=== PATIENT | male | born 1970 | race Caucasian/White ===

== ENCOUNTER 2017-08-12 00:32 | Emergency (ER) | payer MEDICAID ==
[2017-08-12 00:42] VITALS: BP 161/76
[2017-08-12] MEDS ORDERED: Ondansetron 4 MG/2 ML SDV IVPUSH ONE ×2 (01:02→02:37)
--- NOTE | 2017-08-12 01:08 | EDM.PDOC ---
ED HPI GENERAL MEDICAL PROBLEM - General Chief Complaint: Gastrointestinal Problem Stated Complaint: VOMITING/DIARRHEA Time Seen by Provider: 08/12/17 00:39 Source of Information: Reports: Patient, Family History Limitations: Reports: No Limitations - History of Present Illness INITIAL COMMENTS - FREE TEXT/NARRATIVE: This is a 47-year-old male. He awoke around 10 PM this evening with nausea vomiting and diarrhea. He did not notice any blood in the diarrhea and no blood in the vomiting. He comes to the ER because of the vomiting. He denies any fever or chills he denies any cough or congestion and no recent upper respiratory symptoms. Apparently his sister was here in the ER about a week ago with the same exact symptoms. The patient is a kidney transplant patient he is not under any sort of fluid restriction. He is also an insulin-dependent diabetic and his last blood sugar at 11 PM tonight was 79. He states he is not having any pain or cramping and he is actually feeling better. He denies eating anything abnormal today. Abdomen Pain Score (Numeric/FACES): 4 - Related Data Allergies Allergy/AdvReac Type Severity Reaction Status Date / Time Penicillins Allergy Hives Verified 03/03/15 00:57 Home Meds: Home Meds Aspirin [Halfprin] 81 mg PO DAILY 03/03/15 [History] Carvedilol [Coreg] 25 mg PO BID 03/03/15 [History] Pantoprazole [Pantoprazole Sodium] 20 mg PO DAILY 03/03/15 [History] Tacrolimus [Prograf] 2 mg PO BEDTIME 03/03/15 [History] Tacrolimus [Prograf] 2 mg PO DAILY 03/03/15 [History] amLODIPine [Norvasc] 10 mg PO BEDTIME 03/03/15 [History] predniSONE 5 mg PO DAILY 03/03/15 [History] Insulin Aspart [NovoLOG] 0 units SQ TID 08/12/17 [History] Insulin Glarg,Human.Rec.Analog [Lantus] 0 unit SUBCUT DAILY 08/12/17 [History] Promethazine [Phenergan] 25 mg PO Q6H PRN #15 tab 08/12/17 [Rx] atorvaSTATin [Lipitor] 10 mg PO BEDTIME 08/12/17 [History] azaTHIOprine [Azathioprine] 100 mg PO DAILY 08/12/17 [History] Past Medical History HEENT History: Reports: Cataract Cardiovascular History: Reports: High Cholesterol, Hypertension Genitourinary History: Reports: Acute Renal Failure, Chronic Renal Insuffiency, Dialysis Endocrine/Metabolic History: Reports: Diabetes, Type I Hematologic History: Reports: Blood Transfusion(s) - Past Surgical History HEENT Surgical History: Reports: Cataract Surgery GI Surgical History: Reports: Cholecystectomy Other Male Surgeries/Procedures: Left kidney transplant-2014 Social & Family History - Family History Family Medical History: Noncontributory - Tobacco Use Smoking Status *Q: Never Smoker - Caffeine Use Caffeine Use: Reports: None - Recreational Drug Use Recreational Drug Use: No ED ROS GENERAL - Review of Systems Review Of Systems: See Below Constitutional: Denies: Fever, Chills HEENT: Reports: No Symptoms Respiratory: Denies: Shortness of Breath, Cough Cardiovascular: Denies: Chest Pain Endocrine: Reports: No Symptoms GI/Abdominal: Reports: Diarrhea, Nausea, Vomiting. Denies: Abdominal Pain, Black Stool, Bloody Stool, Hematemesis : Reports: No Symptoms Musculoskeletal: Reports: No Symptoms Skin: Reports: No Symptoms Neurological: Reports: No Symptoms Psychiatric: Reports: No Symptoms Hematologic/Lymphatic: Reports: No Symptoms ED EXAM, GI/ABD - Physical Exam Exam: See Below Exam Limited By: No Limitations General Appearance: Alert, WD/WN, No Apparent Distress Eyes: Bilateral: Normal Appearance Ears: Normal External Exam, Normal Canal, Normal TMs Nose: Normal Inspection Throat/Mouth: Normal Inspection, Normal Lips, Normal Oropharynx, Normal Voice, No Airway Compromise Head: Normocephalic Neck: Supple Respiratory/Chest: No Respiratory Distress, Lungs Clear, Normal Breath Sounds Cardiovascular: Regular Rate, Rhythm, No Murmur GI/Abdominal Exam: Soft, Non-Tender, Other (Obese) Back Exam: Full Range of Motion Extremities: Normal Range of Motion Neurological: Alert, Oriented Psychiatric: Normal Affect, Normal Mood Skin Exam: Warm, Dry Course - Vital Signs Last Recorded V/S: Last Vital Signs Temp 99.7 F 08/12/17 00:38 Pulse 90 08/12/17 00:38 Resp 18 08/12/17 00:38 BP 161/76 H 08/12/17 00:38 Pulse Ox 96 08/12/17 00:38 - Orders/Labs/Meds Labs: Laboratory Tests 03/04/18 03/04/18 Range/Units 01:40 01:40 WBC 8.89 (4.23-9.07) K/mm3 RBC 5.53 (4.63-6.08) M/mm3 Hgb 16.6 (13.7-17.5) gm/L Hct 47.6 (40.1-51.0) % MCV 86.1 (79.0-92.2) fl MCH 30.0 (25.7-32.2) pg MCHC 34.9 (32.2-35.5) g/dl RDW Std Deviation 44.6 H (35.1-43.9) fL Plt Count 170 (163-337) K/mm3 MPV 10.2 (9.4-12.3) fl Neut % (Auto) 84.6 H (34.0-67.9) % Lymph % (Auto) 5.8 L (21.8-53.1) % [place] % (Auto) 8.1 (5.3-12.2) % Eos % (Auto) 0.8 (0.8-7.0) Baso % (Auto) 0.1 (0.1-1.2) % Neut # (Auto) 7.52 H (1.78-5.38) K/mm3 Lymph # (Auto) 0.52 L (1.32-3.57) K/mm3 [place] # (Auto) 0.72 (0.30-0.82) K/mm3 Eos # (Auto) 0.07 (0.04-0.54) K/mm3 Baso # (Auto) 0.01 (0.01-0.08) K/mm3 Manual Slide Review Abnormal smear Sodium 139 (136-145) mEq/L Potassium 4.2 (3.5-5.1) mEq/L Chloride 105 (98-107) mEq/L Carbon Dioxide 27 (21-32) mEq/L Anion Gap 11.2 (5-15) BUN 28 H (7-18) mg/dL Creatinine 1.5 H (0.7-1.3) mg/dL Est Cr Clr Drug Dosing 62.86 mL/min Estimated GFR (MDRD) 50 (>60) mL/min BUN/Creatinine Ratio 18.7 H (14-18) Glucose 114 H (74-106) mg/dL Calcium 9.0 (8.5-10.1) mg/dL Total Bilirubin 0.9 (0.2-1.0) mg/dL AST 29 (15-37) U/L ALT 53 (16-63) U/L Alkaline Phosphatase 71 (46-116) U/L Total Protein 7.8 (6.4-8.2) g/dl Albumin 4.1 (3.4-5.0) g/dl Globulin 3.7 gm/dL Albumin/Globulin Ratio 1.1 (1-2) Lipase 71 L (73-393) U/L Meds: Medications Discontinued Medications Generic Name Dose Route Start Last Admin Trade Name Freq PRN Reason Stop Dose Admin Sodium Chloride 1,000 mls @ 1,000 mls/hr 08/12/17 01:15 08/12/17 01:23 Normal Saline IV 1,000 mls/hr ASDIRECTED CHAVO Administration Ondansetron HCl 4 mg 08/12/17 01:02 08/12/17 01:22 Zofran IVPUSH 08/12/17 01:03 4 mg ONETIME ONE Administration Ondansetron HCl Confirm 08/12/17 01:13 08/12/17 01:28 Zofran Administered 08/12/17 01:14 Not Given Dose 4 mg .ROUTE .STK-MED ONE Ondansetron HCl 4 mg 08/12/17 02:37 08/12/17 02:42 Zofran IVPUSH 08/12/17 02:38 4 mg ONETIME ONE Administration - Re-Assessments/Exams Free Text/Narrative Re-Assessment/Exam: 08/12/17 02:33 I talked to the patient about his lab results. His white count is normal suggesting this is more viral. He has had no nausea vomiting or diarrhea since after we started the IV. He does not need a work excuse. I'll provide him some Phenergan at home for the nausea. I encouraged him to drink lots of fluid and be very careful about his insulin use since his blood sugars is 114 and if he is will not be eating much over the next couple of days just drinking fluids he should not take too much insulin to drop his blood sugar down. Departure - Departure Time of Disposition: 02:35 Disposition: Home, Self-Care 01 Condition: Good Clinical Impression: Nausea & vomiting Qualifiers: Vomiting type: unspecified Vomiting Intractability: non-intractable Qualified Code(s): R11.2 - Nausea with vomiting, unspecified Diarrhea Qualifiers: Diarrhea type: unspecified type Qualified Code(s): R19.7 - Diarrhea, unspecified - Discharge Information Prescriptions: Promethazine [Phenergan] 25 mg PO Q6H PRN #15 tab PRN Reason: Nausea Instructions: Diarrhea, Adult, Nausea and Vomiting, Adult Referrals: Man Cox MD [Primary Care Provider] - Forms: ED Department Discharge Additional Instructions: Home and rest as much as possible over the next couple days, drink lots of fluids especially water to stay well-hydrated, the very careful about your insulin use and since you not going to be eating due to the nausea you will not be having calories and I don't want to drop your blood sugar down to 0, follow up with your family doctor on Sunday, return to the ER if needed
[2017-08-12] MEDS ORDERED: Ondansetron 4 MG/2 ML SDV ONE (01:13)
[2017-08-12] MEDS ORDERED: Sodium Chloride 0.9% 1,000 ML IV SCH (01:15)
== END 2017-08-12 03:00 | disposition home or self-care (01) ==
LOC: JD.ED 00:32
DX: R11.2 Nausea with vomiting, unspecified (principal); R19.7 Diarrhea, unspecified; I12.9 Hypertensive chronic kidney disease with stage 1 through stage 4 chronic kidney disease, or unspecified chronic kidney disease; E10.22 Type 1 diabetes mellitus with diabetic chronic kidney disease; N18.9 Chronic kidney disease, unspecified; E78.00 Pure hypercholesterolemia, unspecified; Z99.2 Dependence on renal dialysis; Z94.0 Kidney transplant status; Z79.4 Long term (current) use of insulin; Z79.899 Other long term (current) drug therapy; Z79.82 Long term (current) use of aspirin; Z88.0 Allergy status to penicillin
CPT/HCPCS: 36415; 80053; 83690; 85025; 96361; 96374; 96376; 99284; J2405; J7040; 99283

== ENCOUNTER 2020-11-29 07:45 | Day surgery (SDC) | payer MEDICAID ==
--- NOTE | 2020-11-29 07:44 | PCM.PREANE ---
Preanesthetic Assessment - Procedure Proposed Procedure: Screening Colonoscopy - Anesthesia/Transfusion/Family Hx Anesthesia History: Prior Anesthesia Without Reaction Family History of Anesthesia Reaction: No Transfusion History: Prior Transfusion Without Reaction Intubation History: Unknown - Review of Systems General: No Symptoms Pulmonary: No Symptoms (History of tracheotomy: 2006/from abscessed tooth that resulted in airway compromise. ETOH: 6-7 beers/week), Shortness of Breath Cardiovascular: No Symptoms (HTN, elevated cholesterol, history of atrial fibrillation/history of diastolic dysfunction, history of heart catheterization (2017):), Dyspnea on Exertion, Orthopnea, Edema (2-3+) Gastrointestinal: No Symptoms Neurological: No Symptoms (chronic lower back pain: 06/20) Other: Reports: None (Immunosuppressed: on prograf/on prednisone: history of kidney transplant (2014) right/CKD II.(nephropathy/diabetic)/), Easy Bleeding (On Eliquis: last taken on Sunday11/26/2020), Easy Bruising, Diabetes (am blood msmsk=077 @ 0715) - Physical Assessment NPO Status Date: 11/28/20 NPO Status Time: 23:30 Vital Signs: HR: 67 Sat: 95% Temp: 97.9 B/P: 132/68 Resp: 14 Height: 1.78 m Weight: 136 kg ASA Class: 3 Mental Status: Alert & Oriented x3 Airway Class: Mallampati = 2 Dentition: Reports: Normal Dentition, Nutrioso(s), Caries Thyro-Mental Finger Breadths: 3 Mouth Opening Finger Breadths: 3 ROM/Head Extension: Full Lungs: Clear to Auscultation, Normal Respiratory Effort, Decreased Breath Sounds Cardiovascular: Regular Rate, No Murmurs, Irregular Rhythm - Lab Values: All labs reviewed and noted and within acceptable ranges to proceed with scheduled procedure. - Imaging/EKG Impressions: EKG: atrial fibrillation rate=66 Echocardiogram: EF=60-65% Heart Catheterization: (2016) No significant coronary artery disease present - Allergies Allergies/Adverse Reactions: Allergies Allergy/AdvReac Type Severity Reaction Status Date / Time Penicillins Allergy Hives Verified 11/26/20 10:20 - Anesthesia Plan Pre-Op Medication Ordered: Beta Wilfredo Beta Wilfredo: Carvedilol Med Last Dose Date: 11/29/20 Med Last Dose Time: 07:25 - Acknowledgements Anesthesia Type Planned: MAC Pt an Appropriate Candidate for the Planned Anesthesia: Yes Alternatives and Risks of Anesthesia Discussed w Pt/Guardian: Yes Pt/Guardian Understands and Agrees with Anesthesia Plan: Yes PreAnesthesia Questionnaire HEENT History: Reports: Cataract, Other (See Below) Other HEENT History: diabetic retinopathy Cardiovascular History: Reports: Afib, High Cholesterol, Hypertension, Other (See Below) Other Cardiovascular History: abnormal stress test, diastolic dysfunction Respiratory History: Reports: SOB Gastrointestinal History: Reports: None Genitourinary History: Reports: Acute Renal Failure, Chronic Renal Insuffiency, Dialysis [employer] History: Reports: None Musculoskeletal History: Reports: Other (See Below) Other Musculoskeletal History: lateral epicondylitis, joint pain, muscle spasms Neurological History: Reports: None Psychiatric History: Reports: None Endocrine/Metabolic History: Reports: Diabetes, Type I Hematologic History: Reports: Anemia, Blood Transfusion(s) Immunologic History: Reports: Immunosuppression, Solid Organ Transplant Oncologic (Cancer) History: Reports: None Dermatologic History: Reports: Cellulitis, Other (See Below) Other Dermatologic History: abcess/cellulitis of face, skin neoplasm - Past Surgical History HEENT Surgical History: Reports: Cataract Surgery, Tonsillectomy, Other (See Below) Other HEENT Surgeries/Procedures: right eye surgery Cardiovascular Surgical History: Reports: None Respiratory Surgical History: Reports: Tracheostomy GI Surgical History: Reports: Cholecystectomy Other Male Surgeries/Procedures: Left kidney transplant-2014 Endocrine Surgical History: Reports: None Neurological Surgical History: Reports: None Musculoskeletal Surgical History: Reports: None Oncologic Surgical History: Reports: None Dermatological Surgical History: Reports: None - SUBSTANCE USE Tobacco Use Status *Q: Never Tobacco User Days Per Week of Alcohol Use: 4 Number of Drinks Per Day: 2 Total Drinks Per Week: 8 Recreational Drug Use History: No - HOME MEDS Home Medications: Home Meds Pantoprazole [Pantoprazole Sodium] 20 mg PO DAILY 03/03/15 [History] amLODIPine [Norvasc] 10 mg PO BEDTIME 03/03/15 [History] carvediloL [Coreg] 25 mg PO BID 03/03/15 [History] predniSONE 5 mg PO DAILY 03/03/15 [History] Insulin Aspart [NovoLOG] 1 dose SQ TID 08/12/17 [History] Insulin Glarg,Human.Rec.Analog [Lantus] 50 unit SUBCUT QAM 08/12/17 [History] atorvaSTATin [Lipitor] 10 mg PO BEDTIME 08/12/17 [History] azaTHIOprine [Azathioprine] 100 mg PO DAILY 08/12/17 [History] Apixaban [Eliquis] 5 mg PO BID 11/26/20 [History] Furosemide [Lasix] 40 mg PO DAILY 11/26/20 [History] Latanoprost/Pf [Latanoprost 0.005% Eye Drop] 1 drop EYEBOTH BEDTIME 11/26/20 [History] Magnesium Chloride 64 mg PO DAILY 11/26/20 [History] Tacrolimus [Prograf] 0.5 mg PO BID 11/26/20 [History] - CURRENT (IN HOUSE) MEDS Current Meds: Current Medications Lactated Ringer's (Ringers, Lactated) 1,000 mls @ 125 mls/hr IV ASDIRECTED CHAVO Stop: 11/29/20 23:00 Lidocaine/Sodium Bicarbonate (Lidocaine 1%/Sod Bicarbonate In Ns 8.4% 1 Ml Syringe) 0.25 ml IDERM ONETIME PRN PRN Reason: Prior to IV Start Stop: 11/29/20 18:00 Sodium Chloride (Sodium Chloride 0.9% 10 Ml Syringe) 10 ml FLUSH ASDIRECTED PRN PRN Reason: Keep Vein Open Stop: 11/29/20 18:00
[~2020-11-29 07:45] MED LIST: Lactated Ringers 1,000 ML IV SCH; Lidocaine 1%/Sod Bicarbonate in NS 8.4% 1 ML Syringe IDERM PRN; Sodium Chloride 0.9% 10 ML Syringe FLUSH PRN
[2020-11-29] MEDS ORDERED: Propofol 200 MG/20 ML SDV ONE ×2 (08:00→09:31)
[2020-11-29] MEDS ORDERED: Lidocaine 1% 4 ML ONE (08:05)
[2020-11-29] MEDS ORDERED: Albuterol 0.083% 2.5 MG/3 ML Neb Soln NEB ONE (09:15)
--- NOTE | 2020-11-29 10:13 | PCM48HPAN ---
Post Anesthesia Note - EVALUATION WITHIN 48HRS OF ANESTHETIC Vital Signs in Normal Range: Yes Patient Participated in Evaluation: Yes Respiratory Function Stable: Yes Airway Patent: Yes Cardiovascular Function Stable: Yes Hydration Status Stable: Yes Pain Control Satisfactory: Yes Nausea and Vomiting Control Satisfactory: Yes Mental Status Recovered: Yes Vital Signs: Last Vital Signs Temp 36.5 C 11/29/20 07:48 Pulse 67 11/29/20 07:48 Resp 14 11/29/20 07:48 BP 132/68 11/29/20 07:48 Pulse Ox 94 L 11/29/20 08:35
--- NOTE | 2020-11-29 10:31 | PROC ---
DATE OF OPERATION: 11/29/2020 SURGEON: Tanya Bobby MD PREOPERATIVE DIAGNOSIS: Need for screening colonoscopy. POSTOPERATIVE DIAGNOSIS: Five polyps in the ascending colon and cecum. OPERATION PERFORMED: Colonoscopy. ANESTHESIA: Monitored anesthesia care. ESTIMATED BLOOD LOSS: Minimal. FINDINGS: Five pedunculated polyps in the ascending colon and cecum. INDICATIONS/CONSENT: The patient is a 50-year-old male who has a history of renal failure, status post kidney transplantation a few years ago. The patient is on immunosuppression as well as Eliquis due to atrial fibrillation. The patient has no history or family history of colon cancer, but due to age, he was due for screening colonoscopy. Therefore, he was evaluated and deemed to be a good candidate for this procedure. I saw the patient this morning. We discussed risks, benefits, and alternatives, and informed consent was signed. DESCRIPTION OF PROCEDURE: The patient was taken to the procedure room and placed in the left lateral decubitus position. Monitored anesthesia care was induced, and then colonoscopy was begun with examination of the perianal area and digital rectal exam, both of which were normal. The scope was inserted and taken all the way to the cecum. It was challenging to get the scope down into the cecum due to looping right at the end of the colon; however, abdominal pressure was applied, allowing us to visualize the cecum. The ileocecal valve and the appendiceal orifice were photographed. There was one 6 mm polyp in the cecum which was taken with hot snare. EBL was minimal. In the ascending colon, there were at least four 4 mm to 8 mm pedunculated polyps which were all taken with hot snare. EBL was minimal. These were all retrieved. The ascending colon were grouped together. The cecal polyp was placed separately. Then, we withdrew the scope. There were no other polyps throughout the colon. The prep was adequate for visualization of polyps greater than 4 mm. In the rectum, retroflexion was performed and was normal. Air was suctioned out, and the scope was removed. Due to the amount and extent of the polyps that were taken from the ascending colon, I recommend this patient repeat colonoscopy in 3 years. The patient will be allowed to return home, follow up in 2 weeks for discussion of the pathology. MMCARLOS /[id number] MAKSIM
[2020-11-29 11:25] VITALS: BP 128/62
[2020-11-29 11:30] VITALS: PULSE 63
== END 2020-11-29 11:09 | disposition home or self-care (01) ==
LOC: JD.SDS 07:45
PROVIDERS: ATTEND Surgery
DX: Z12.11 Encounter for screening for malignant neoplasm of colon (principal); D12.2 Benign neoplasm of ascending colon; D12.0 Benign neoplasm of cecum; I48.91 Unspecified atrial fibrillation; N18.2 Chronic kidney disease, stage 2 (mild); I13.0 Hypertensive heart and chronic kidney disease with heart failure and stage 1 through stage 4 chronic kidney disease, or unspecified chronic kidney disease; E10.22 Type 1 diabetes mellitus with diabetic chronic kidney disease; E10.21 Type 1 diabetes mellitus with diabetic nephropathy; E10.40 Type 1 diabetes mellitus with diabetic neuropathy, unspecified; E66.9 Obesity, unspecified; E78.5 Hyperlipidemia, unspecified; Z79.01 Long term (current) use of anticoagulants; Z98.890 Other specified postprocedural states; Z88.0 Allergy status to penicillin; Z79.899 Other long term (current) drug therapy; Z68.41 Body mass index [BMI] 40.0-44.9, adult
CPT/HCPCS: 00812; 94640; J2704; J7120

== ENCOUNTER 2021-07-02 17:09 | Inpatient (IN) | payer MEDICAID ==
[2021-07-02] MEDS ORDERED: Sodium Chloride 0.9% 10 ML Syringe FLUSH PRN (17:43)
[2021-07-02] MEDS ORDERED: Albuterol/Ipratropium 3.0-0.5 MG/3 ML Neb Soln NEB ONE (18:22)
[2021-07-02] MEDS ORDERED: Sodium Chloride 0.9% 1,000 ML IV ONE (19:14)
[2021-07-02] MEDS ORDERED: Albuterol 0.083% 2.5 MG/3 ML Neb Soln INH PRN (20:54)
[2021-07-02] MEDS ORDERED: oxyCODONE 5 MG Tab PO PRN (20:54)
[2021-07-02] MEDS ORDERED: Morphine 2 MG/ML SYRINGE IVPUSH PRN (20:54)
[2021-07-02] MEDS ORDERED: Acetaminophen 325 MG Tab PO PRN (20:54)
[2021-07-02] MEDS ORDERED: Promethazine 12.5 MG in Sodium Chloride 0.9% 50 ML IV PRN (20:54)
[2021-07-02] MEDS ORDERED: Heparin Sodium 5,000 Units/ML Vial SUBCUT SCH (21:00)
[2021-07-02] MEDS ORDERED: hydrALAZINE 20 MG/ML SDV IVPUSH PRN (21:22)
[2021-07-02] MEDS ORDERED: REMDESIVIR 200 MG in Sodium Chloride 0.9% 250 ML IV ONE (22:15)
[2021-07-02] MEDS: Pantoprazole 40 MG Tab.CR PO SCH (22:53)
[2021-07-02] MEDS: Tacrolimus 0.5 MG Cap PO SCH (23:39)
[2021-07-02] MEDS: Insulin Glargine,Hum.Rec.Anlog 100 UNIT/ML 3 ML Pen SUBCUT SCH (23:39)
[2021-07-02] MEDS: predniSONE 5 MG Tab PO SCH (23:39)
[2021-07-02] MEDS: Oseltamivir 30 MG Cap PO SCH (23:41)
[2021-07-02] MEDS: Azithromycin 500 MG in Sodium Chloride 0.9% 250 ML IV SCH (23:41)
[2021-07-02] MEDS: Apixaban 2.5 MG Tab PO SCH (23:41)
[2021-07-03] MEDS: Pantoprazole 40 MG Tab.CR PO SCH (06:50)
[2021-07-03] MEDS: Oseltamivir 30 MG Cap PO SCH ×2 (08:58→20:24)
[2021-07-03] MEDS: predniSONE 5 MG Tab PO SCH (08:58)
[2021-07-03] MEDS: Apixaban 2.5 MG Tab PO SCH ×2 (08:58→20:24)
[2021-07-03] MEDS: Tacrolimus 0.5 MG Cap PO SCH ×2 (09:01→20:25)
[2021-07-03] MEDS: Insulin Lispro 100 Unit/ML 3 ML KwikPen SUBCUT SCH ×4 (09:03→20:26)
[2021-07-03] MEDS: Insulin Glargine,Hum.Rec.Anlog 100 UNIT/ML 3 ML Pen SUBCUT SCH (09:04)
[2021-07-03] MEDS: Potassium Chloride 20 MEQ Tab.ER PO SCH ×3 (15:00→18:37)
[2021-07-03] MEDS ORDERED: Insulin Glargine,Hum.Rec.Anlog 100 UNIT/ML 3 ML Pen SUBCUT ONE (15:30)
[2021-07-03] MEDS: REMDESIVIR 100 MG in Sodium Chloride 0.9% 250 ML IV SCH (17:22)
[2021-07-03] MEDS: Azithromycin 500 MG in Sodium Chloride 0.9% 250 ML IV SCH (20:24)
[2021-07-03] MEDS: amLODIPine 10 MG Tab PO SCH (20:24)
[2021-07-03] MEDS: atorvaSTATin 20 MG Tab PO SCH (20:24)
[2021-07-03] MEDS: Latanoprost 0.005% Ophth Soln 2.5 ML Bottle EYEBOTH SCH (20:25)
[2021-07-04] MEDS: Pantoprazole 40 MG Tab.CR PO SCH (06:02)
[2021-07-04] MEDS: Insulin Lispro 100 Unit/ML 3 ML KwikPen SUBCUT SCH ×4 (08:46→20:14)
[2021-07-04] MEDS: Oseltamivir 30 MG Cap PO SCH (08:47)
[2021-07-04] MEDS: predniSONE 5 MG Tab PO SCH (08:47)
[2021-07-04] MEDS: Apixaban 2.5 MG Tab PO SCH (08:47)
[2021-07-04] MEDS: Tacrolimus 0.5 MG Cap PO SCH ×2 (08:48→20:15)
[2021-07-04] MEDS ORDERED: Insulin Glargine,Hum.Rec.Anlog 100 UNIT/ML 3 ML Pen SUBCUT SCH (09:00)
[2021-07-04] MEDS ORDERED: guaiFENesin 100 MG/5 ML Soln 10 ML UD Cup PO PRN (10:03)
[2021-07-04] MEDS ORDERED: Insulin Glargine,Hum.Rec.Anlog 100 UNIT/ML 3 ML Pen SUBCUT ONE (14:00)
[2021-07-04] MEDS: Metoprolol Succinate 25 MG Tab.ER PO SCH (14:59)
[2021-07-04] MEDS: REMDESIVIR 100 MG in Sodium Chloride 0.9% 250 ML IV SCH (18:12)
[2021-07-04] MEDS: Azithromycin 500 MG in Sodium Chloride 0.9% 250 ML IV SCH (20:12)
[2021-07-04] MEDS: Latanoprost 0.005% Ophth Soln 2.5 ML Bottle EYEBOTH SCH (20:13)
[2021-07-04] MEDS: atorvaSTATin 20 MG Tab PO SCH (20:13)
[2021-07-04] MEDS: amLODIPine 10 MG Tab PO SCH (20:14)
[2021-07-04] MEDS: Oseltamivir 75 MG Cap PO SCH (20:14)
[2021-07-04] MEDS: Apixaban 5 MG Tab PO SCH (20:14)
[2021-07-05] MEDS: Pantoprazole 40 MG Tab.CR PO SCH (06:07)
[2021-07-05] MEDS ORDERED: Magnesium Sulfate/Water 2 GM in Premix Bag 1 BAG IV ONE (09:00)
[2021-07-05] MEDS ORDERED: Insulin Glargine,Hum.Rec.Anlog 100 UNIT/ML 3 ML Pen SUBCUT SCH (09:00)
[2021-07-05] MEDS: Metoprolol Succinate 25 MG Tab.ER PO SCH (09:50)
[2021-07-05] MEDS: Insulin Lispro 100 Unit/ML 3 ML KwikPen SUBCUT SCH ×2 (09:50→13:06)
[2021-07-05] MEDS: Oseltamivir 75 MG Cap PO SCH (09:50)
[2021-07-05] MEDS: predniSONE 5 MG Tab PO SCH (09:50)
[2021-07-05] MEDS: Apixaban 5 MG Tab PO SCH (09:50)
[2021-07-05] MEDS: Tacrolimus 0.5 MG Cap PO SCH (09:52)
[2021-07-05 11:43] VITALS: BP 126/62; PULSE 97
== END 2021-07-05 15:10 | disposition home or self-care (01) | DRG 177 ==
LOC: JD.ED 17:09 → UNDOADMIN 20:54 → JD.MS 20:54
PROVIDERS: ADMIT Internal Medicine; ATTEND Internal Medicine
PROC: XW033E5 Introduction of Remdesivir Anti-infective into Peripheral Vein, Percutaneous Approach, New Technology Group 5 (ICD-10-PCS; principal; 2021-07-02)
PROC: 8E0ZXY6 Isolation (ICD-10-PCS; 2021-07-02)
DX: U07.1 COVID-19 (principal); J96.01 Acute respiratory failure with hypoxia; T86.12 Kidney transplant failure; E10.22 Type 1 diabetes mellitus with diabetic chronic kidney disease; E10.65 Type 1 diabetes mellitus with hyperglycemia; Z68.41 Body mass index [BMI] 40.0-44.9, adult; N17.9 Acute kidney failure, unspecified; D84.9 Immunodeficiency, unspecified; Z99.2 Dependence on renal dialysis; J10.1 Influenza due to other identified influenza virus with other respiratory manifestations; Z94.0 Kidney transplant status; N18.9 Chronic kidney disease, unspecified; Z79.01 Long term (current) use of anticoagulants; I48.91 Unspecified atrial fibrillation; E11.65 Type 2 diabetes mellitus with hyperglycemia; E66.01 Morbid (severe) obesity due to excess calories; D69.6 Thrombocytopenia, unspecified; E87.8 Other disorders of electrolyte and fluid balance, not elsewhere classified; E11.22 Type 2 diabetes mellitus with diabetic chronic kidney disease; I12.9 Hypertensive chronic kidney disease with stage 1 through stage 4 chronic kidney disease, or unspecified chronic kidney disease; E11.319 Type 2 diabetes mellitus with unspecified diabetic retinopathy without macular edema; E78.00 Pure hypercholesterolemia, unspecified; D63.1 Anemia in chronic kidney disease; Z98.49 Cataract extraction status, unspecified eye; Z88.0 Allergy status to penicillin; Z79.899 Other long term (current) drug therapy; Z79.52 Long term (current) use of systemic steroids; Z79.4 Long term (current) use of insulin; Z98.890 Other specified postprocedural states; Z90.49 Acquired absence of other specified parts of digestive tract
CPT/HCPCS: 36415; 71045; 80053; 85025; 85379; 86140; 87635; 87804 ×2; 94640; 99284; J7030; 82947; 83735; 86141; 87040; 94762; 99285; A9270-GY; J0248; J0456; J1815; J3475; J7050; J7500; J7507; J7512; J7620-GY; U0002

== ENCOUNTER 2024-04-08 04:24 | Emergency (ER) | payer MEDICAID ==
[2024-04-08] MEDS: Ketorolac 30 MG/ML SDV IM ONE (05:28)
[2024-04-08 08:02] VITALS: BP 142/82; PULSE 86
== END 2024-04-08 07:55 | disposition home or self-care (01) ==
LOC: JD.ED 04:24
DX: M25.561 Pain in right knee (principal); I48.91 Unspecified atrial fibrillation; E78.00 Pure hypercholesterolemia, unspecified; I10 Essential (primary) hypertension; N18.9 Chronic kidney disease, unspecified; R10.9 Unspecified abdominal pain; Z79.899 Other long term (current) drug therapy; Z79.4 Long term (current) use of insulin; Z88.0 Allergy status to penicillin
CPT/HCPCS: 73564; 73700; 96372; 99284; J1885